=== PATIENT | female | born 1995 | race Caucasian/White ===

== ENCOUNTER 2023-08-31 21:46 | Emergency (ER) | payer MEDICAID ==
[~2023-08-31] VITALS: Ht 154.9 cm; Wt 62.1 kg
[2023-08-31 22:03] VITALS: BP_SYST 123; PULSE 73; RESP 20; TEMP 97.8; O2SAT 99
[2023-09-01] MEDS ORDERED: METOCLOPRAMIDE HCL 10 MG/2 ML VIAL IVP ONE (00:15)
[2023-09-01] MEDS ORDERED: NACL 0.9% 1,000 ML IV ONE (00:15)
[2023-09-01] MEDS ORDERED: KETOROLAC TROMETHAMINE 30 MG VIAL IVP ONE (00:15)
[2023-09-01] MEDS ORDERED: IBUP-1969 PO (01:58)
[2023-09-01] MEDS ORDERED: ACET-2634 PO (01:58)
[2023-09-01 02:37] VITALS: BP_SYST 122; PULSE 82; RESP 18; O2SAT 99
== END 2023-09-01 02:37 | disposition home or self-care (01) ==
LOC: SED 21:46
DX: R51.9 Headache, unspecified (principal); Z79.899 Other long term (current) drug therapy
CPT/HCPCS: 99284; 96374; 96361; 96375; J1885; J2765; J7030